=== PATIENT | male | born 1970 | race African-American/Black ===

== ENCOUNTER 2020-01-26 10:29 | Day surgery (SDC) | payer MEDICAID, OTHER ==
[~2020-01-26 10:29] MED LIST: DIPRIVAN 200 MG/20 ML IV ONE; Ketamine HCl 50 MG/ML ONE
[2020-01-26] MEDS ORDERED: Depo-Medrol 40 MG/ML IM ONE (10:30)
[2020-01-26] MEDS ORDERED: BUPIVACAINE 0.5% VIAL IJ ONE (10:30)
--- NOTE | 2020-01-26 13:25 | XRAY ---
24 seconds fluoroscopy time in surgery for left intra-articular and subacromial bursa injections.
--- NOTE | 2020-01-26 13:32 | XRAY ---
Indication: Right shoulder and subacromial bursa injection. Intraoperative fluoroscopy was provided for 24 seconds. 2 digital spot images submitted for interpretation demonstrates needle tip projecting over the left glenohumeral joint superiorly. Second needle tip projects subacromial bursa. Small amount of contrast injected for both needle tip placement. Correlate with intraoperative findings/report.
[2020-01-26] MEDS ORDERED: Lactated Ringers 1,000 ML IV ONE (15:10)
== END 2020-01-26 12:21 | disposition home or self-care (01) ==
LOC: SDC-PAIN 10:29
PROVIDERS: ATTEND Psychiatry & Neurology Pain Medicine
DX: M19.012 Primary osteoarthritis, left shoulder (principal); M75.52 Bursitis of left shoulder; E11.9 Type 2 diabetes mellitus without complications; I10 Essential (primary) hypertension; E78.5 Hyperlipidemia, unspecified; Z79.899 Other long term (current) drug therapy
CPT/HCPCS: 20610; 36415; 73030; 77002; 82962; J1030; J2704; Q9966

== ENCOUNTER 2020-03-22 08:04 | Day surgery (SDC) | payer OTHER ==
[2020-03-22] MEDS ORDERED: Depo-Medrol 40 MG/ML IM ONE (08:05)
[2020-03-22] MEDS ORDERED: LIDOCAINE HCL 2% 100 MG/5 ML IJ ONE (08:05)
[2020-03-22] MEDS ORDERED: Ketamine HCl 50 MG/ML ONE (09:44)
[2020-03-22] MEDS ORDERED: DIPRIVAN 200 MG/20 ML IV ONE (09:44)
--- NOTE | 2020-03-22 10:10 | XRAY ---
Indication: Bilateral L4-S1 MBB. Intraoperative fluoroscopy was provided for 10 seconds. Single digital spot image submitted for interpretation demonstrates posterior needle tips projecting over the expected left and right L4-S1 nerve roots. Correlate with intraoperative findings/report.
--- NOTE | 2020-03-22 10:14 | XRAY ---
10 seconds fluoroscopy time in surgery for bilateral L4-S1 MBB.
[2020-03-22] MEDS ORDERED: Lactated Ringers 1,000 ML IV ONE (16:45)
== END 2020-03-22 10:13 | disposition home or self-care (01) ==
LOC: SDC-PAIN 08:04
PROVIDERS: ATTEND Psychiatry & Neurology Pain Medicine
DX: M47.816 Spondylosis without myelopathy or radiculopathy, lumbar region (principal); E11.9 Type 2 diabetes mellitus without complications; I10 Essential (primary) hypertension; E78.5 Hyperlipidemia, unspecified; Z79.899 Other long term (current) drug therapy
CPT/HCPCS: 64493; 64494; 72020; 77002; 82947; 82962; J1030; J2704

== ENCOUNTER 2020-04-26 08:51 | Day surgery (SDC) | payer OTHER ==
[2020-04-26] MEDS ORDERED: Depo-Medrol 40 MG/ML IM ONE (08:52)
[2020-04-26] MEDS ORDERED: BUPIVACAINE 0.5% VIAL IJ ONE (08:52)
[2020-04-26] MEDS ORDERED: Ketamine HCl 50 MG/ML ONE (10:32)
[2020-04-26] MEDS ORDERED: DIPRIVAN 200 MG/20 ML IV ONE (10:32)
--- NOTE | 2020-04-26 11:42 | XRAY ---
Indication: Right L3-S1 MBB. Intraoperative fluoroscopy was provided for 22 seconds. Single digital spot image submitted for interpretation demonstrates posterior needle tips projecting over the expected right L3-S1 nerve roots. Correlate with intraoperative findings/report.
--- NOTE | 2020-04-26 13:04 | XRAY ---
22 seconds fluoroscopy time in surgery for right L3-S1 MBB.
[2020-04-26] MEDS ORDERED: Lactated Ringers 1,000 ML IV ONE (15:29)
== END 2020-04-26 10:55 | disposition home or self-care (01) ==
LOC: SDC-PAIN 08:51
PROVIDERS: ATTEND Psychiatry & Neurology Pain Medicine
DX: M47.816 Spondylosis without myelopathy or radiculopathy, lumbar region (principal); E11.9 Type 2 diabetes mellitus without complications; I10 Essential (primary) hypertension; E78.5 Hyperlipidemia, unspecified; Z79.899 Other long term (current) drug therapy
CPT/HCPCS: 64493; 64494; 64495; 72020; 77002; 82947; 82962; J1030; J2704

== ENCOUNTER 2020-06-21 09:50 | Day surgery (SDC) | payer OTHER ==
[2020-06-21] MEDS ORDERED: LIDOCAINE HCL 2% 100 MG/5 ML IJ ONE (09:51)
[2020-06-21] MEDS ORDERED: Depo-Medrol 40 MG/ML IM ONE (09:51)
[2020-06-21] MEDS ORDERED: Ketamine HCl 50 MG/ML ONE (11:40)
[2020-06-21] MEDS ORDERED: DIPRIVAN 200 MG/20 ML IV ONE (11:40)
--- NOTE | 2020-06-21 13:07 | XRAY ---
16 seconds fluoroscopy time in surgery for left L4-S1 MBB.
--- NOTE | 2020-06-21 13:08 | XRAY ---
Indication: Left L3-S1 MBB. Intraoperative fluoroscopy was provided for 16 seconds. Single digital spot image submitted for interpretation demonstrates posterior needle tips projecting over the expected left L3-S1 nerve roots. Correlate with intraoperative findings/report.
[2020-06-21] MEDS ORDERED: Lactated Ringers 1,000 ML IV ONE (14:39)
== END 2020-06-21 12:10 | disposition home or self-care (01) ==
LOC: SDC-PAIN 09:50
PROVIDERS: ATTEND Psychiatry & Neurology Pain Medicine
DX: M47.816 Spondylosis without myelopathy or radiculopathy, lumbar region (principal); E11.9 Type 2 diabetes mellitus without complications; I10 Essential (primary) hypertension; E78.5 Hyperlipidemia, unspecified; Z79.899 Other long term (current) drug therapy
CPT/HCPCS: 64493; 64494; 64495; 72020; 77002; 82947; J1030; J2704

== ENCOUNTER 2020-07-19 07:52 | Day surgery (SDC) | payer OTHER ==
[2020-07-19] MEDS ORDERED: BUPIVACAINE 0.5% VIAL IJ ONE (07:53)
[2020-07-19] MEDS ORDERED: Depo-Medrol 40 MG/ML IM ONE (07:53)
[2020-07-19] MEDS ORDERED: Ketamine HCl 50 MG/ML ONE (10:06)
[2020-07-19] MEDS ORDERED: DIPRIVAN 200 MG/20 ML IV ONE (10:06)
[2020-07-19] MEDS ORDERED: TORAdol 30 mg Injection ONE (10:19)
--- NOTE | 2020-07-19 10:56 | XRAY ---
Indication: Bilateral SI joint injection. Intraoperative fluoroscopy provided for 15 seconds. 4 digital spot images submitted for interpretation demonstrates posterior needle tip projecting over the left and right SI joint inferiorly. Correlate with intraoperative findings/report.
--- NOTE | 2020-07-19 12:11 | XRAY ---
15 seconds fluoroscopy time in surgery for bilateral SI joint injections.
[2020-07-19] MEDS ORDERED: Lactated Ringers 1,000 ML IV ONE (14:58)
== END 2020-07-19 10:31 | disposition home or self-care (01) ==
LOC: SDC-PAIN 07:52
PROVIDERS: ATTEND Psychiatry & Neurology Pain Medicine
DX: M46.1 Sacroiliitis, not elsewhere classified (principal); E11.9 Type 2 diabetes mellitus without complications; I10 Essential (primary) hypertension; E78.5 Hyperlipidemia, unspecified; Z79.899 Other long term (current) drug therapy
CPT/HCPCS: 27096; 72202; 77002; 82947; G0260; J1030; J1885; J2704

== ENCOUNTER 2020-08-16 06:25 | Day surgery (SDC) | payer OTHER ==
[2020-08-16] MEDS ORDERED: Xylocaine 1% Vial 30 ML PF IJ ONE (06:26)
[2020-08-16] MEDS ORDERED: BUPIVACAINE 0.5% VIAL IJ ONE (06:26)
[2020-08-16] MEDS ORDERED: Depo-Medrol 40 MG/ML IM ONE (06:26)
[2020-08-16] MEDS ORDERED: DIPRIVAN 200 MG/20 ML IV ONE ×2 (07:10→07:45)
[2020-08-16] MEDS ORDERED: Ketamine HCl 50 MG/ML ONE (07:10)
--- NOTE | 2020-08-16 09:11 | XRAY ---
Indication: Right L3-S1 RFA. Intraoperative fluoroscopy provided for 29 seconds. 3 digital spot images submitted for interpretation demonstrates posterior needle tips projecting over the expected right L3-S1 nerve roots. Correlate with intraoperative findings/report.
--- NOTE | 2020-08-16 09:11 | XRAY ---
29 seconds fluoroscopy time in surgery for right L3-S1 RFA.
[2020-08-16] MEDS ORDERED: Lactated Ringers 1,000 ML IV ONE (14:30)
== END 2020-08-16 08:04 | disposition home or self-care (01) ==
LOC: SDC-PAIN 06:25
PROVIDERS: ATTEND Psychiatry & Neurology Pain Medicine
DX: M47.816 Spondylosis without myelopathy or radiculopathy, lumbar region (principal); E11.9 Type 2 diabetes mellitus without complications; I10 Essential (primary) hypertension; E78.5 Hyperlipidemia, unspecified; Z79.899 Other long term (current) drug therapy
CPT/HCPCS: 64635; 64636; 72100; 77002; 82947; J1030; J2001; J2704

== ENCOUNTER 2020-08-23 06:52 | Day surgery (SDC) | payer OTHER ==
[2020-08-23] MEDS ORDERED: Depo-Medrol 40 MG/ML IM ONE (06:53)
[2020-08-23] MEDS ORDERED: Xylocaine 1% Vial 30 ML PF IJ ONE (06:53)
[2020-08-23] MEDS ORDERED: BUPIVACAINE 0.5% VIAL IJ ONE (06:53)
[2020-08-23] MEDS ORDERED: DIPRIVAN 200 MG/20 ML IV ONE ×2 (08:00→08:18)
[2020-08-23] MEDS ORDERED: Ketamine HCl 50 MG/ML ONE (08:03)
--- NOTE | 2020-08-23 09:51 | XRAY ---
Indication: Left L3-S1 RFA. Intraoperative fluoroscopy provided for 15 seconds. 3 digital spot images submitted for interpretation demonstrate posterior needle tips projecting over the expected left L3-S1 nerve roots. Correlate with intraoperative findings/report.
--- NOTE | 2020-08-23 09:59 | XRAY ---
15 seconds fluoroscopy time in surgery for left L3-S1 RFA.
[2020-08-23] MEDS ORDERED: Lactated Ringers 1,000 ML IV ONE (13:48)
== END 2020-08-23 08:41 | disposition home or self-care (01) ==
LOC: SDC-PAIN 06:52
PROVIDERS: ATTEND Psychiatry & Neurology Pain Medicine
DX: M47.816 Spondylosis without myelopathy or radiculopathy, lumbar region (principal); E11.9 Type 2 diabetes mellitus without complications; I10 Essential (primary) hypertension; E78.5 Hyperlipidemia, unspecified; Z79.899 Other long term (current) drug therapy
CPT/HCPCS: 64635; 64636; 72100; 77002; 82947; J1030; J2001; J2704

== ENCOUNTER 2022-03-20 06:44 | Day surgery (SDC) | payer MEDICARE ==
[2022-03-20] MEDS ORDERED: DIPRIVAN 200 MG/20 ML IV ONE ×2 (08:08→08:26)
[2022-03-20] MEDS ORDERED: Lactated Ringers 1,000 ML IV ONE (09:43)
--- NOTE | 2022-03-20 11:05 | XRAY ---
Indication: Left L3-S1 RFA. Intraoperative fluoroscopy provided for 49 seconds. 9 digital spot image submitted for interpretation demonstrates posterior needle tips projecting over the expected left L3-S1 nerve roots. Correlate with intraoperative findings/report.
--- NOTE | 2022-03-20 11:33 | XRAY ---
49 seconds fluoroscopy time in surgery for left L3-S1 RFA.
== END 2022-03-20 08:50 | disposition home or self-care (01) ==
LOC: SDC-PAIN 06:44
PROVIDERS: ATTEND Psychiatry & Neurology Pain Medicine
DX: M47.816 Spondylosis without myelopathy or radiculopathy, lumbar region (principal); E11.9 Type 2 diabetes mellitus without complications; Z79.899 Other long term (current) drug therapy
CPT/HCPCS: 64635; 64636; 72100; 77002; 82947; J2704

== ENCOUNTER 2022-03-27 08:43 | Day surgery (SDC) | payer MEDICARE ==
[2022-03-27] MEDS ORDERED: Depo-Medrol 40 MG/ML IM ONE (08:44)
[2022-03-27] MEDS ORDERED: Xylocaine 1% Vial 30 ML PF IJ ONE ×2 (08:44)
[2022-03-27] MEDS ORDERED: Lactated Ringers 1,000 ML IV ONE (10:04)
[2022-03-27] MEDS ORDERED: DIPRIVAN 200 MG/20 ML IV ONE (10:05)
--- NOTE | 2022-03-27 11:39 | XRAY ---
Indication: Right L3-S1 RFA. Intraoperative fluoroscopy provided for 26 seconds. 4 digital spot image submitted for interpretation demonstrates posterior needle tips projecting over the expected right L3-S1 nerve roots. Correlate with intraoperative findings/report.
--- NOTE | 2022-03-27 12:32 | XRAY ---
26 seconds of fluoroscopy was used in surgery for a right L3-S1 RFA.
== END 2022-03-27 10:40 | disposition home or self-care (01) ==
LOC: SDC-PAIN 08:43
PROVIDERS: ATTEND Psychiatry & Neurology Pain Medicine
DX: M47.816 Spondylosis without myelopathy or radiculopathy, lumbar region (principal); E11.9 Type 2 diabetes mellitus without complications; Z79.899 Other long term (current) drug therapy
CPT/HCPCS: 64635; 64636; 72100; 77002; 82947; J1030; J2001; J2704

== ENCOUNTER 2024-06-30 10:22 | Day surgery (SDC) | payer MEDICARE ==
[2024-06-30] MEDS ORDERED: LIDOCAINE HCL 1% AMPUL 5 ML IJ ONE (10:23)
[2024-06-30] MEDS ORDERED: Depo-Medrol 40 MG/ML IM ONE (10:23)
[2024-06-30] MEDS ORDERED: Sodium Chloride 0.9(Preservative Free) 10 ML IJ ONE (10:23)
--- NOTE | 2024-06-30 13:26 | XRAY ---
Indication: Lumbar ZEESHAN. Intraoperative fluoroscopy provided for 13 seconds. 2 digital spot image submitted for interpretation demonstrates posterior needle tip projecting just posterior to L4-L5 interspace. Small amount of contrast injected for needle tip placement. Correlate with intraoperative findings/report.
--- NOTE | 2024-06-30 14:59 | XRAY ---
13 seconds of fluoroscopy was used in surgery for a lumbar ZEESHAN.
== END 2024-06-30 12:40 | disposition home or self-care (01) ==
LOC: SDC-PAIN 10:22
PROVIDERS: ATTEND Psychiatry & Neurology Pain Medicine
DX: M54.16 Radiculopathy, lumbar region (principal); E11.9 Type 2 diabetes mellitus without complications
CPT/HCPCS: 62323; 72100; 77002; 82947; Q9966